=== PATIENT | female | born 1995 | race Caucasian/White ===

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

== ENCOUNTER 2017-01-11 19:45 | Emergency (ER) | payer BC ==
[~2017-01-11] VITALS: Ht 157.5 cm; Wt 57.4 kg
[2017-01-11 19:46] VITALS: Ht 157.5 cm; Wt 57.4 kg
--- NOTE | 2017-01-11 20:09 | EMERGENCY ROOM VISIT NOTE ---
History Report prepared by Vero: Graham Thurston Under the Supervision of: Dr. Juan Miguel Suresh M.D. First contact with patient: 19:53 Chief Complaint: DIZZY Stated Complaint: RIGHT ARM NUMB - DIZZY - RIGHT EYE NUMB History of Present Illness The patient is a 21 year old white female with a past medical history of panic attacks, anxiety, and a right femur repair who presents to the ED with a cc of constant dizziness beginning three hours ago. The patient is trying to stop taking her SSRI. She reports standing up fast increases her symptoms. The patient notes she has Ativan to take as needed, and she has not tried it yet because it is addictive. Positive cold sweats, nausea, palpitations, right eye tingling, right arm tense, lightheadedness. Negative medication allergies, alcohol use, tobacco use, drug use, LOC, drinking gross amounts of caffeinated beverages, extra stress. Her LNMP was three weeks ago. Source of History: patient Onset: three hours ago Position: other (global) Quality: other (dizziness) Timing: constant Modifying Factors (Worsening): other (standing up fast) Associated Symptoms: + nausea, No LOC Note: Associated symptoms: cold sweats, palpitations, right eye tingling, right arm tense, lightheadedness. Denies: medication allergies, alcohol use, tobacco use, drug use, drinking gross amounts of caffeinated beverages, extra stress Review of Systems See HPI for pertinent positives and negatives. A total of ten systems were reviewed and were otherwise negative. Past Medical & Surgical Medical Problems: (1) Anxiety (2) Panic attacks Family History Cancer Social History Smoking Status: Never Smoker Alcohol Use: none Drug Use: none Marital Status: single Housing Status: lives with roommate Occupation Status: [place] [employer] student Current/Historical Medications Scheduled Control Pills ( Control Pills), 1 TAB PO DAILY Mirtazapine (Mirtazapine), 7.5 MG PO HS Allergies Coded Allergies: Ibuprofen (Unverified Allergy, Unknown, VOMITING, 01/11/17) Physical Exam Vital Signs Date Time Temp Pulse Resp B/P (MAP) Pulse Ox O2 Delivery O2 Flow Rate FiO2 01/11/17 22:28 124/86 01/11/17 22:28 36.9 80 15 124/86 96 01/11/17 22:20 80 15 01/11/17 22:15 79 16 01/11/17 22:10 95 15 01/11/17 22:05 82 21 01/11/17 22:00 83 22 01/11/17 21:55 89 19 01/11/17 21:50 91 21 01/11/17 21:45 90 26 01/11/17 21:40 87 19 01/11/17 21:35 87 18 01/11/17 21:30 80 21 01/11/17 21:20 100 24 01/11/17 21:15 97 22 01/11/17 20:50 97 20 01/11/17 20:45 87 21 01/11/17 20:44 96 Room Air 01/11/17 20:44 72 18 109/69 96 Room Air 85 127/72 95 128/73 01/11/17 20:40 92 22 01/11/17 20:35 86 14 01/11/17 20:34 77 01/11/17 20:34 128/73 01/11/17 20:33 127/72 01/11/17 20:30 109/69 01/11/17 19:46 36.9 87 20 130/81 98 Room Air Physical Exam GENERAL: Awake, alert, well-appearing, NAD HENT: Normocephalic, atraumatic. EYES: Normal conjunctiva. Sclera non-icteric. NECK: Supple. No nuchal rigidity. FROM. RESPIRATORY: CTAB, no rhonchi, wheezing, crackles CARDIAC: RRR, no MRG ABDOMEN: Soft, NTND, BS+ MSK: No chest wall TTP, no LE edema NEURO: CN 2-12 intact, 5/5 upper and lower extremity strength, no dysmetria, no drift, good finger to nose, no sensory deficits. SKIN: No rash or jaundice noted. Medical Decision & Procedures ER Provider Diagnostic Interpretation: X-ray: Per my interpretation, radiologist review. CHEST ONE VIEW PORTABLE HISTORY: EVALUATE ALTERED MENTAL STATUS/WEAKNESS COMPARISON: None. FINDINGS: The lungs are clear. Cardiac silhouette is normal in size. No pleural effusions. No pneumothorax. IMPRESSION: No acute process. Electronically signed by: Tom Antunez M.D. 01/11/2017 9:14 PM Dictated Date/Time: 01/11/2017 9:13 PM Laboratory Results 01/11/17 20:40 Red Blood Count 4.56, Mean Corpuscular Volume 91.4, Mean Corpuscular Hemoglobin 30.9, Mean Corpuscular Hemoglobin Concent 33.8, Mean Platelet Volume 10.0, Neutrophils (%) (Auto) 63.9, Lymphocytes (%) (Auto) 28.5, Monocytes (%) (Auto) 5.7, Eosinophils (%) (Auto) 1.3, Basophils (%) (Auto) 0.3, Neutrophils # (Auto) 4.80, Lymphocytes # (Auto) 2.14, Monocytes # (Auto) 0.43, Eosinophils # (Auto) 0.10, Basophils # (Auto) 0.02 01/11/17 20:40 Test 01/11/17 20:30 01/11/17 20:40 Urine Color YELLOW Urine Appearance CLEAR (CLEAR) Urine pH 7.0 (4.5-7.5) Urine Specific [place] 1.006 (1.000-1.030) Urine Protein NEG (NEG) Urine Glucose (UA) NEG (NEG) Urine Ketones NEG (NEG) Urine Occult Blood NEG (NEG) Urine Nitrite NEG (NEG) Urine Bilirubin NEG (NEG) Urine Urobilinogen NEG (NEG) Urine Leukocyte Esterase NEG (NEG) White Blood Count 7.51 K/uL (4.8-10.8) Red Blood Count 4.56 M/uL (4.2-5.4) Hemoglobin 14.1 g/dL (12.0-16.0) Hematocrit 41.7 % (37-47) Mean Corpuscular Volume 91.4 fL (80-100) Mean Corpuscular Hemoglobin 30.9 pg (25-34) Mean Corpuscular Hemoglobin Concent 33.8 g/dl (32-36) Platelet Count 385 K/uL (130-400) Mean Platelet Volume 10.0 fL (7.4-10.4) Neutrophils (%) (Auto) 63.9 % Lymphocytes (%) (Auto) 28.5 % Monocytes (%) (Auto) 5.7 % Eosinophils (%) (Auto) 1.3 % Basophils (%) (Auto) 0.3 % Neutrophils # (Auto) 4.80 K/uL (1.4-6.5) Lymphocytes # (Auto) 2.14 K/uL (1.2-3.4) Monocytes # (Auto) 0.43 K/uL (0.11-0.59) Eosinophils # (Auto) 0.10 K/uL (0-0.5) Basophils # (Auto) 0.02 K/uL (0-0.2) RDW Standard Deviation 41.5 fL (36.4-46.3) RDW Coefficient of Variation 12.4 % (11.5-14.5) Immature Granulocyte % (Auto) 0.3 % Immature Granulocyte # (Auto) 0.02 K/uL (0.00-0.02) Anion Gap 10.0 mmol/L (3-11) Est Creatinine Clear Calc Drug Dose 89.5 ml/min Estimated GFR () 123.9 Estimated GFR (Non- 106.9 BUN/Creatinine Ratio 11.8 (10-20) Calcium Level 9.0 mg/dl (8.5-10.1) Phosphorus Level 3.3 mg/dl (2.5-4.9) Magnesium Level 2.2 mg/dl (1.8-2.4) Total Bilirubin 0.2 mg/dl (0.2-1) Direct Bilirubin mg/dl (0-0.2) Aspartate Amino Transf (AST/SGOT) 25 U/L (15-37) Alanine Aminotransferase (ALT/SGPT) 24 U/L (12-78) Alkaline Phosphatase 72 U/L (45-117) Total Protein 8.5 gm/dl (6.4-8.2) Albumin 4.0 gm/dl (3.4-5.0) Thyroid Stimulating Hormone (TSH) 0.702 uIu/ml (0.300-4.500) Chemistry Specimen Hemolysis Laboratory results reviewed by me Medications Administered Medications (Trade) Dose Ordered Sig/Lakisha Route Start Time Stop Time Status Last Admin Dose Admin Sodium Chloride 1,000 ml @ 999 mls/hr Q1H1M STAT IV 01/11/17 20:20 01/11/17 21:20 DC 01/11/17 20:47 999 MLS/HR Ondansetron HCl (Zofran Inj) 4 mg NOW STAT IV 01/11/17 21:30 01/11/17 21:31 DC 01/11/17 21:45 4 MG Hydroxyzine HCl (Vistaril Tab) 25 mg NOW STAT PO 01/11/17 21:30 01/11/17 21:31 DC 01/11/17 21:45 25 MG ECG Indication: weakness Rate (beats per minute): 71 Rhythm: normal sinus Findings: other (Normal interval, normal axis, no STS change or TWI) ED Course 1957: The patient was evaluated in room C06. A complete history and physical exam was performed. 2136: I reevaluated the patient and discussed current exam findings. 2203: I reevaluated the patient. She still has symptoms, but they are not as intense. Discussed results and discharge instructions: she verbalized understanding and agreement. I will discharge her after I review the side effects of her mediation. 2225: I discussed her symptoms may be caused by her medication, possible seizure , anxiety, and less likely CVA or cardiac. The patient is ready for discharge. Medical Decision The patient is a 21 year old white female with a past medical history of panic attacks, anxiety, and a right femur repair who presents to the ED with a cc of constant dizziness beginning three hours ago. Etiologies such as benign positional vertigo, dehydration, hypovolemia, anemia, tumor, infection, hypoglycemia, electrolyte abnormalities, cardiac sources, intracerebral event, toxicologic, neurologic, as well as others were entertained. Patient was seen and evaluated at the bedside. Patient is fairly well- appearing. Patient does note that she has been weaned off her mirtazapine. Patient does complain of some paresthesias show the right forehead as well as the right arm. Patient denies any trauma. Patient has no numbness, or weakness. Patient denies any recent falls or trauma. Patient denies any history seizures. Patient did have blood work, EKG, chest x-ray, and urine completed. Patient's blood work was fairly unremarkable. Patient did have some slight hypokalemia she was told replete with potatoes and/or bananas. Did not believe the patient required a CT of this time as I do not believe that she is having any sort of stroke. Patient was not hypertensive. Patient was complaining of some dizziness and change position. Patient's EKG was unremarkable. Patient had a negative chest film. Urinalysis was negative. Her parents test negative. Patient was tolerating by mouth well was able to ambulate to the bathroom without difficult. Patient felt that she was feeling improved. Upon review of mirtazapine a concussive paresthesias. I did tell the patient reported issue. Also stated that this may be related to anxiety as she does have a history. Patient is to suitable for outpatient follow-up and treatment. Patient was given strict precautions and worrisome signs for which to return to the emergency department. Patient agreed with plan of care. Patient was given strict follow-up, discharge, and return precautions. All questions were answered. Patient was deemed suitable for outpatient follow-up at this time. Patient agreed with the plan of care and was safely discharged home. Impression Primary Impression: Anxiety Additional Impression: Dizziness Scribe Attestation The scribe's documentation has been prepared under my direction and personally reviewed by me in its entirety. I confirm that the note above accurately reflects all work, treatment, procedures, and medical decision making performed by me. Departure Information Dispostion Home / Self-Care Referrals No Doctor, Assigned (PCP) Forms HOME CARE DOCUMENTATION FORM, IMPORTANT VISIT INFORMATION Patient Instructions Dizziness Fainting Poss Causes, My [facility] Additional Instructions Please return to the emergency department if you have worsening or recurrent symptoms not amenable to at-home treatment. Please call for a follow-up appointment with her primary care physician. Please take your medications as prescribed. If you have other concerns and/or complaints please feel free to also call your primary care physician's office or return the ED for further evaluation, management, and treatment. You may take 600 mg Ibuprofen every 6 hours as needed for pain with food for no more than 2 consecutive days. You may take tylenol 1000 mg every 6 hours as needed for pain. You may take motrin and tylenol separately or at the same time. Take your medications as prescribed. If taking an antibiotic consider taking a probiotic and/or eating yogurt, but at the least, please take with food as it can cause upset stomach. You have been examined and treated today on an emergency basis only. This is not a substitute for, or an effort to provide, complete comprehensive medical care. It is impossible to recognize and treat all injuries or illnesses in a single emergency department visit. It is therefore important that you follow up closely with [facility], your PCP, and/or your specialist(s). Call as soon as possible for an appointment. Thank you for your time and consideration. I look forward to speaking with you again soon. Please don't hesitate to call us if you have any questions. Problem Qualifiers
[2017-01-11] MEDS ORDERED: SODIUM CHLORIDE 0.9% 1000ML 1,000 ML IV STA (20:20)
[2017-01-11] MEDS ORDERED: MIRT15TA53 PO (20:36)
[2017-01-11 20:44] VITALS: O2SAT 96
[2017-01-11 20:52] LABS: BASO % 0.3 %; BASO ABS # 0.02 K/uL (0-0.2); COMPLETE YES; EOS % 1.3 %; HEMATOCRIT 41.7 % (37-47); IG% 0.3 %; LYMPH % 28.5 %; LYMPH ABS # 2.14 K/uL (1.2-3.4); MEAN CELL VOLUME 91.4 fL (80-100); MEAN CORPUSCULAR HEMOGLOBIN 30.9 pg (25-34); MEAN CORPUSCULAR HGB CONC 33.8 g/dl (32-36); MONO % 5.7 %; NEUT % 63.9 %; PLATELET COUNT 385 K/uL (130-400); RED BLOOD COUNT 4.56 M/uL (4.2-5.4); WHITE BLOOD COUNT 7.51 K/uL (4.8-10.8)
--- NOTE | 2017-01-11 21:15 | DIAGNOSTIC IMAGING REPORT ---
CHEST ONE VIEW PORTABLE HISTORY: EVALUATE ALTERED MENTAL STATUS/WEAKNESS COMPARISON: None. FINDINGS: The lungs are clear. Cardiac silhouette is normal in size. No pleural effusions. No pneumothorax. IMPRESSION: No acute process. Electronically signed by: Tom Antunez M.D. 01/11/2017 9:14 PM Dictated Date/Time: 01/11/2017 9:13 PM
[2017-01-11 21:24] LABS: ALT/SGPT 24 U/L (12-78); BLOOD UREA NITROGEN 9 mg/dl (7-18); BUN/CREATININE RATIO 11.8 (10-20); CARBON DIOXIDE 25 mmol/L (21-32); CHLORIDE 104 mmol/L (98-107); GLUCOSE 78 mg/dl (70-99); MAGNESIUM 2.2 mg/dl (1.8-2.4); POTASSIUM 3.9 mmol/L (3.5-5.1); SODIUM 139 mmol/L (136-145)
[2017-01-11 21:25] LABS: ALKALINE PHOSPHATASE 72 U/L (45-117); AST/SGOT 25 U/L (15-37); PHOSPHORUS 3.3 mg/dl (2.5-4.9); THYROID STIMULATING HORMONE 0.702 uIu/ml (0.300-4.500)
[2017-01-11] MEDS ORDERED: ONDANSETRON INJ 2 MG/ML 2 ML VIAL IV STA (21:30)
[2017-01-11] MEDS ORDERED: hydrOXYzine HCL 25 MG TAB PO STA (21:30)
[2017-01-11 21:43] LABS: URINE APPEARANCE CLEAR (CLEAR); URINE BILIRUBIN NEG (NEG); URINE COLOR YELLOW; URINE NITRITE NEG (NEG); URINE SPECIFIC GRAVITY 1.006 (1.000-1.030); UROBILINOGEN NEG (NEG)
[2017-01-11 21:49] LABS: MANUAL MICROSCOPIC REQUIRED? NO; REVIEW REQ? NO
[2017-01-11 22:28] VITALS: BP 124/86; PULSE 80; TEMP 36.9; O2SAT 96
== END 2017-01-11 22:29 | disposition home or self-care (01) ==
LOC: C.EDB 19:45 → C.EDC 22:29
DX: F41.9 Anxiety disorder, unspecified (principal); R42 Dizziness and giddiness; Z79.3 Long term (current) use of hormonal contraceptives

== ENCOUNTER → 2017-04-16 | Outpatient (CLI) | payer BC ==
[~2017-04-16] MED LIST changes: +MIRT15TA53 PO
== END | disposition home or self-care (01) ==
LOC: C.LABSPEC 17:30
PROVIDERS: ATTEND Physician Assistant
DX: R39.9 Unspecified symptoms and signs involving the genitourinary system (principal); L29.8 Other pruritus

== ENCOUNTER → 2017-05-11 | Outpatient (CLI) | payer BC | END | disposition home or self-care (01) | LOC: C.LABSPEC 14:10 | PROVIDERS: ATTEND Physician Assistant | DX: Z01.419 Encounter for gynecological examination (general) (routine) without abnormal findings (principal) ==

== ENCOUNTER → 2017-05-29 | Outpatient (CLI) | payer BC | END | disposition home or self-care (01) | LOC: C.LABSPEC 17:38 | PROVIDERS: ATTEND Physician Assistant | DX: R30.0 Dysuria (principal) ==